=== PATIENT | female | born 1960 | race African-American/Black ===

== ENCOUNTER 2017-03-04 20:00 | Emergency (ER) | payer SELFPAY ==
[~2017-03-04] VITALS: Ht 157.5 cm; Wt 86.0 kg
[2017-03-05] MEDS ORDERED: KETOROLAC 60MG/2ML VIAL IM ONE
[2017-03-05 00:32] VITALS: BP 125/93
[2017-03-05 01:19] LABS: CLARITY URINE CLEAR (CLEAR); COLOR URINE DARK YELLOW (YELLOW); GLUCOSE URINE NEGATIVE (NEGATIVE); KETONES URINE NEGATIVE (NEGATIVE); LEUKOCYTE ESTERASE URINE NEGATIVE (NEGATIVE); NITRITE URINE NEGATIVE (NEGATIVE); OCCULT BLOOD URINE NEGATIVE (NEGATIVE); PH URINE 5.5 (4.5-8.0); PROTEIN URINE NEGATIVE (NEGATIVE); SPECIFIC GRAVITY URINE 1.025 (1.005-1.030); UROBILINOGEN URINE 0.2 E.U./dL (0.2-1.0)
== END 2017-03-05 02:08 | disposition home or self-care (01) ==
LOC: ER 03-05 00:55
DX: M54.9 Dorsalgia, unspecified (principal); M25.532 Pain in left wrist; W18.39XA Other fall on same level, initial encounter; Y93.89 Activity, other specified; Y92.89 Other specified places as the place of occurrence of the external cause
CPT/HCPCS: 73110; 81003; 96372; 99285; J1885

== ENCOUNTER 2019-02-21 05:32 | Emergency (ER) | payer SELFPAY ==
[~2019-02-21] VITALS: Ht 162.6 cm; Wt 89.0 kg
[2019-02-21] MEDS ORDERED: COCAINE 4% TOPICAL SOLN 4ML TOP NR (06:15)
[2019-02-21] MEDS ORDERED: SODIUM CHLORIDE 0.9% 1,000 ML IV ONE (06:16)
[2019-02-21] MEDS ORDERED: ENALAPRIL 2.5MG/2ML VIAL 2ML IV ONE (06:30)
[2019-02-21] MEDS ORDERED: SILVER NITRATE APPLICATOR STICK TOP ONE (06:30)
[2019-02-21 06:31] LABS: BASOPHILS % 0.7 % (0.0-2.0); EOSINOPHILS % 5.3 % (0.0-5.0); HEMATOCRIT. 36.4 % (36.0-48.0); LYMPHOCYTES % 27.8 % (20.0-50.0); MEAN CORPUSCULAR HEMOGLOBIN 26.9 pg (28.0-32.0); MEAN CORPUSCULAR VOLUME 81.5 fL (81.0-99.0); MEAN PLATELET VOLUME 8.5 fl (7.4-10.4); MONOCYTES % 9.4 % (2.0-8.0); NEUTROPHILS % 56.8 % (40.0-76.0); PLATELET 304 x1000/uL (130-400); RED BLOOD CELL COUNT 4.47 mill/uL (4.2-5.4); RED CELL DISTRIBUTION WIDTH 14.4 % (11.6-14.6)
[2019-02-21 06:41] LABS: PARTIAL THROMBOPLASTIN TIME 25.4 sec (23.4-31.0)
[2019-02-21 06:43] LABS: CHLORIDE 109 mEq/L (98-107)
[2019-02-21] MEDS ORDERED: ENALAPRIL 1.25MG/ML VIAL 1ML IV SCH (06:51)
[2019-02-21] MEDS ORDERED: TRANEXAMIC ACID 1,000 MG/10 ML IV ONE (07:00)
[2019-02-21] MEDS ORDERED: MORPHINE SULFATE 4 MG/ML CPJ (NOT FOR IM USE) IV ONE (07:30)
[2019-02-21] MEDS ORDERED: CEFAZOLIN 1000MG PREMIX 50 ML IV ONE (07:30)
[2019-02-21] MEDS ORDERED: ONDANSETRON HCL 4MG/2ML INJ IV ONE (07:30)
[2019-02-21] MEDS ORDERED: NALOXONE HCL 1 MG/ML 2ML VIAL ONE (07:53)
[2019-02-21] MEDS ORDERED: DOPAMINE 400MG/250ML PREMIX 250 ML IV ONE (07:59)
[2019-02-21] MEDS ORDERED: NALOXONE HCL 1 MG/ML 2ML VIAL IV ONE ×2 (08:00)
[2019-02-21 08:56] VITALS: BP 161/78
[2019-02-21] MEDS ORDERED: OXYMETAZOLINE HCL NASAL SPRAY 15ML BOTHNSTRLS SCH (09:00)
== END 2019-02-21 09:20 | disposition short-term general hospital (02) ==
LOC: ER 05:32
DX: R04.0 Epistaxis (principal); R55 Syncope and collapse; I10 Essential (primary) hypertension; Z88.5 Allergy status to narcotic agent; T40.2X5A Adverse effect of other opioids, initial encounter; Y92.238 Other place in hospital as the place of occurrence of the external cause
CPT/HCPCS: 36415; 71045; 80048; 82962; 85025; 85610; 85730; 86850; 86900; 86901; 93005; 96365; 96375; 99285; J0690; J1265; J2270; J2310; J2405; J3490; J7030